=== PATIENT | female | born 1935 | race Caucasian/White ===

== ENCOUNTER → 2023-07-10 11:15 | Outpatient (CLI) | payer MEDICARE, SELFPAY ==
--- NOTE | 2023-07-10 11:19 | DI.US.S_ITS ---
PROCEDURE: US PERIPH VENOUS LOW EXTREM BI INDICATIONS: Other specified soft tissue disorders TECHNIQUE: Real-time imaging, as well as color and pulse Doppler interrogation, were performed of the deep veins of both legs from the inguinal ligament to the popliteal fossa, with documentation of the visualized calf veins. COMPARISON: None. FINDINGS: Right: The common femoral, femoral, popliteal, and the visualized calf veins are normally compressible, and free of intraluminal thrombus. Color and pulse Doppler demonstrate normal phasic intravascular flow. There is normal augmentation response to distal compression maneuver. Within the right scoliosis region, there is a dilated venous sinus seen, with rouleaux flow. This is fully compressible the time of this study. Left: The common femoral, femoral, popliteal, and the visualized calf veins are normally compressible, and free of intraluminal thrombus. Color and pulse Doppler demonstrate normal phasic intravascular flow. There is normal augmentation response to distal compression maneuver. IMPRESSION: No findings of deep venous thrombosis in either lower extremity. Within the right soleus region, there is a dilated venous sinus with rouleaux flow. This phenomenon can be seen in patients before developing deep venous thrombosis. - If clinically appropriate, please consider short-term follow-up. Note: Concordant preliminary findings given by the wireless architect upon the completion of the examination to at 12 noon on July 10, 2023. Dictated by: Christian Mckeon M.D. on 07/10/2023 at 11:10 Approved by: Christian Mckeon M.D. on 07/10/2023 at 11:11
== END ==
PROVIDERS: Family Provider Internal Medicine; PCP Internal Medicine; Referring Provider Physical Medicine & Rehabilitation; Visit Provider Physical Medicine & Rehabilitation
DX: M79.89 Other specified soft tissue disorders (principal)
CPT/HCPCS: 93970